=== PATIENT | female | born 1955 | race Caucasian/White ===

== ENCOUNTER 2017-01-29 06:48 | Day surgery (SDC) | payer OTHER ==
[~2017-01-29] VITALS: Ht 157.5 cm; Wt 100.7 kg
[~2017-01-29 06:48] MED LIST: ADULT LOW DOSE81 MG PO; CYCLOBENZAPRINE5 MG PO; DIOVAN40 MG PO; IBUPROFEN600 MG PO; OMEPRAZOLE20 M1 PO; OXYCODON-ACETA1 EAC2 PO; PROAIR HFA8.5 GM INH; PROZAC20 MG PO; TYLENOL325 MG PO; VALSARTAN-HCTZ1 EACH PO; VITAMIN D1000 UNI1 PO; VITAMIN E1000 UNI1 PO
--- NOTE | 2017-01-29 12:19 | NUR ---
01/29/17 Steffany9 Ann Mcmanus 1214 - PT ARRIVED TO PACU. OPA IN PLACE.
[2017-01-29] MEDS ORDERED: OXYCODON-ACETA1 EAC2 PO (12:33)
--- NOTE | 2017-01-29 15:21 | NUR ---
1500 AMB TO BR VOIDS 300MLS YELLOW URINE. DID WELL. WANTS TO GO HOME GETTING DRESSED. DENIES NEED FOR PAIN MEDICINE. 0/10 PAIN.
--- NOTE | 2017-02-03 13:10 | OR ---
[facility] [address], [place] [address] Signed DATE OF SERVICE: 01/29/2017 PREOPERATIVE DIAGNOSIS: Left stage III breast carcinoma with residual (positive margin) superior and superolateral aspect. POSTOPERATIVE DIAGNOSIS: Left stage III breast carcinoma with residual (positive margin) superior and superolateral aspect. PROCEDURE: Re-excision of left breast tissue for negative margin. ANESTHESIA: General LMA (Samina Chase CRNA) and local 10 cc of 0.25% Marcaine with epinephrine. INDICATION: This 61-year-old obese white woman is a patient of MATT Stoddard, and is from [place], [place]. She has undergone left partial mastectomy with sentinel lymph node identification and subsequent (concurrent) left axillary dissection on January 03, 2017. Eight of nine axillary lymph nodes were positive for metastatic disease. The primary tumor size is 3 cm, moderately differentiated. There was some evidence of carcinoma in situ as well. She continues to have output from her axillary drain of 30 cc a day. She does have a longstanding and persistent smoking history of 1 pack of cigarettes a day. Smoking cessation attempts have been made. Her final pathology did show a positive margin in the superior and superolateral aspect of the excision site and on that basis reexcision is recommended. The risks of bleeding, infection, cosmetic deformity, and so forth were reviewed with herin detail. She understands and wished to proceed. FINDINGS: The tissue was inflamed, as would be expected more than 2 weeks out from operation. Excision was undertaken in superior and superolateral aspect. Parenchymal reapproximation was undertaken. Good cosmesis was maintained. Specimen was oriented for pathologicevaluation with sutures. DESCRIPTION OF PROCEDURE: The patient was brought to the operating room, given a general LMA-type anesthetic. Preoperative antibiotic, Ancef, was given. Sequential compression device stockings used and heparin subcutaneously administered. The axillary drain was draining medium darkessentially clear fluid from the left axilla. The left breast was prepared with a chlorhexidine solution after removing the tape and adhesive residue. A transverse incision in the superolateral aspect of the left breast was used for incision sites. Incision was made through the previous incision. Dissection carried through the dermis. Inflammatory changes were noted asexpected. Electronically Signed By: SLIM GUTIERREZ MD 02/03/17 1310 PATIENT NAME: ANGY CATHERINE OPERATIVE REPORT DATE OF : 51 PHYSICIAN: SLIM GUTIERREZ MD REPORT #: [id number] REPORT IS CONFIDENTIAL AND NOT TO BE RELEASED WITHOUT AUTHORIZATION [facility] [address] [place] [id number] Signed Using electrocautery excision of the superior aspect of the biopsy cavity and lateral Aspect concordant with the pathology report and orientation of the original excised specimen was then undertaken. Photographs were taken as well. Once excised, the tissue was marked with a short stitch superior, long stitch laterally, and a double stitch in the deep margin. The parenchyma was reapproximated with interrupted 2-0 Vicryl. The skin was closed with interrupted 3-0 Vicrylin the deep dermal layer. Steri-Strips were applied, as was the Mepilex silver sponge dressing and an Opsite. An Opsite was additionally used to secure the axillary drain. It is anticipated that the drain will be removed soon when it is less than 30 cc a day. She tolerated the procedure well. BLOOD LOSS: Minimal. COMPLICATIONS: None. MD JUMA Ruggiero/Kathyl /[id number] cc: MD Beka Jaramillo MD [facility] MATT Stoddard, [place] Electronically Signed By: SLIM GUTIERREZ MD 02/03/17 1310 PATIENT NAME: AVESANDIPANGY SOFIA OPERATIVE REPORT DATE OF : 51 PHYSICIAN: SLIM GUTIERREZ MD REPORT #: [id number] REPORT IS CONFIDENTIAL AND NOT TO BE RELEASED WITHOUT AUTHORIZATION
== END 2017-01-29 15:10 | disposition home or self-care (01) ==
LOC: DS 06:48
PROVIDERS: Surgery
PROC: 0HBU0ZX Excision of Left Breast, Open Approach, Diagnostic (ICD-10-PCS; principal; 2017-01-29 10:00)
DX: C50.412 Malignant neoplasm of upper-outer quadrant of left female breast (principal); I10 Essential (primary) hypertension; G47.30 Sleep apnea, unspecified; K21.9 Gastro-esophageal reflux disease without esophagitis; F17.210 Nicotine dependence, cigarettes, uncomplicated; Z85.3 Personal history of malignant neoplasm of breast; Z98.41 Cataract extraction status, right eye; Z98.42 Cataract extraction status, left eye; Z90.710 Acquired absence of both cervix and uterus; Z90.12 Acquired absence of left breast and nipple; Z90.49 Acquired absence of other specified parts of digestive tract; Z98.890 Other specified postprocedural states
CPT/HCPCS: 00404; 80053; 85025; J0690; J1100; J1644; J2250; J2405; J3010; J7120

== ENCOUNTER 2017-02-07 08:43 | Day surgery (SDC) | payer OTHER ==
[~2017-02-07] VITALS: Ht 157.5 cm; Wt 100.7 kg
--- NOTE | 2017-02-07 13:07 | NUR ---
02/07/17 Jes Ohara REPORT FROM [employer]UCK [employer]IVER.
[2017-02-07] MEDS ORDERED: OXYCODONE HCL5 MG PO (13:36)
--- NOTE | 2017-02-07 14:12 | NUR ---
c/o 7/10 pain. states feels like someone on my chest , puts hand over r dressing and hand over l dressing. oxycodone given with jello.
--- NOTE | 2017-02-07 15:12 | NUR ---
HAS TAKEN CRACKERS/JELLO. RATES PAIN 5/10 STATES THIS ACCEPTABLE. WANTS TO GO HOME.EARLIER AMB TO BR, VOIDED 400MLS
--- NOTE | 2017-02-23 10:25 | OR ---
[facility] [address] [place], [place] [address] Signed DATE OF SERVICE: 02/07/2017 PREOPERATIVE DIAGNOSES: Left stage IIIA infiltrating ductal breast carcinoma. Positive margin and deep re-excision site, left upper outer quadrant. Smoking and obesity. POSTOPERATIVE DIAGNOSIS: Left stage IIIA infiltrating ductal breast carcinoma. Positive margin and deep re-excision site, left upper outer quadrant. Smoking and obesity. PROCEDURES: Placement of right subclavian Bard port catheter (prolonged complicated and difficult). Surgeon-directed fluoroscopy (prolonged). Re-excision of left upper outer quadrant breast excision site to attain negative margin. SURGEON: Slim Gutierrez M.D. ANESTHESIA: General LMA (Bran Klein CRNA) and local 10 mL of 1% lidocaine with epinephrine. INDICATION: This 61- year-old white woman is from [place], [place]. Patient of Taylor Rabago, nurse practitioner in [place], [place]. She was found to have infiltrating ductal breast carcinoma of the left upper outer quadrant upon image-guided biopsy by Dr. Adriana Jakcson and underwent lumpectomy and axillary dissection on January 03, 2017. She was found to have a primary tumor size of 3 cm considered moderately differentiated. ER/SD positive, and 8/9 axillary lymph nodes positive, and sentinel lymph node biopsies had been positive as well. She is known to have a positive margin on final pathologic assessment of the excision site in the superior and superolateral aspect. Reexcision was undertaken widely and residual carcinoma on that side was identified. Additionally, there was a positive margin deeply at the biopsy cavity site. Initial and re-excision had not extended to the pectoralis fascia. It is noted that she is quite obese and does smoke. She was anticipated to undergo Port-A-Cath placement today for chemotherapy, anticipated under the direction of Dr. Tracy in [facility], but with positive margin noted on re-excision at this time in the deep margin, consideration is made for additional re-excision to attain a deep pathologically negative margin. Electronically Signed By: SLIM GUTIERREZ MD 02/23/17 1025 PATIENT NAME: ANGY CATHERINE OPERATIVE REPORT DATE OF : 51 PHYSICIAN: SLIM GUTIERREZ MD REPORT #: [id number] REPORT IS CONFIDENTIAL AND NOT TO BE RELEASED WITHOUT AUTHORIZATION [facility] [address] [place], [place] [address] Signed We discussed the merits of re-excision versus possible total mastectomy. I favor re-excision and only of additional positive margin is noted would consideration be made for mastectomy. The risks of re-excision include, but are not limited to, bleeding, infection, cosmetic deformity, and placement of a Port-A-Cath include bleeding, infection, arterial injury, dysfunction of the catheter, embolization of the catheter infection in the catheter, and other unforeseen complications. She and her friends who accompanied her understanding and agreed to proceed. FINDINGS: A central venous catheter was placed first. Access through the right neck was anticipated initially that she is very plethoric and has a very short neck and access to the right carotid artery showing pulsatile bleeding was accomplished, but access to the internal jugular vein not forthcoming. On that basis, access was through the right subclavian vein. The wire that was passed had a propensity to pass across the right subclavian vein across the innominate to the left subclavian vein. Once considerable amount of effort and manipulation under fluoroscopic control, the wire was ultimately guided to the superior vena cava and ultimately the inferior vena cava confirming it to be in the venous channel. The catheter was placed with the tip in the superior vena cava and good function of catheter was noted. Contrast study showed the course of the catheter to be good without evidence of kinking or other problem and it functioned well. A post-anesthesia recovery room chest x-ray showed the tip of the catheter to be in the superior vena cava and optimally placed without sign of complication. As regard to re-excision of the breast, the biopsy cavity was gummy and inflamed as would be expected. Wide excision was undertaken deeply down to the pectoralis fascia and to a lesser extent, superiorly and inferiorly. The specimen was oriented appropriately and we are hopeful and optimistic for a negative margin to ultimately be determined. Reasonable cosmesis was maintained despite this being the second reexcision of the tumor site given her significant obesity. DESCRIPTION OF PROCEDURE: The patient was brought to the operating room, given a general anesthetic with an LMA device. The head was turned to the left in the upper torso including the left chest wall, right side neck and so forth, all prepared with chlorhexidine solution and draped sterilely. Preoperative antibiotics were given. Sequential compression device stockings used and heparin subcutaneously administered. She had an impressively short and plethoric neck. Using the Seldinger technique, the right neck was deemed appropriate for an internal jugular approach for her central catheter given her obesity and so forth. Electronically Signed By: SLIM GUTIERREZ MD 02/23/17 1025 PATIENT NAME: ANGY CATHERINE OPERATIVE REPORT DATE OF : 51 PHYSICIAN: SLIM GUTIERREZ MD REPORT #: [id number] REPORT IS CONFIDENTIAL AND NOT TO BE RELEASED WITHOUT AUTHORIZATION [facility] [address] [place], [place] [address] Signed Passage to t h e right carotid artery as evidenced by pulsatile bleeding was noted and the needle was withdrawn and pressure applied. Additional attempts at access to the vein were unsuccessful. Given the short neck and difficulty providing reliable right internal jugular venous access, the right subclavian vein was deemed reasonable. With similar technique beneath the right clavicle on the lateral middle third, the right subclavian vein was accessed showing dark nonpulsatile blood. A flexible J-wire was passed without resistance down the needle. The needle was removed. Surgeon-directed fluoroscopy was undertaken, which showed that the wire traversed the mediastinum to the left subclavian vein. Under fluoroscopic control, various manipulations were undertaken to adjust the wire to the superior vena cava and padded it downward to the inferior vena cava. Various position changes were required. Head position change and so forth, as the catheter had a very strong proclivity to passage across the mediastinum rather than down the superior vena cava. Ultimately, it was withdrawn enough and with fair amount of luck entered into the superior vena cava which traversed easily and down to the inferior vena cava, confirming its position in the venous system. 1% lidocaine was injected transversely over the right pectoralis area, mindful of the large breast which had been retracted inferiorly for the course of this procedure. Dissection was carried through the subcutaneous tissue with electrocautery. A pocket was developed inferiorly directly over the pectoralis fascia. The overlying breast parenchyma and fat was not too excessive to allow for placement of a port in this area. The puncture site with the wire emanating from it was incised with an 11 blade and a blue dilator and subseque ntly the dilator and peel-away sheath introducer passed over the wire. Previous retrograde dark nonpulsatile bleeding was noted from the peel-away sheath introducer. A previously inspected Bard port catheter (Groshong type tip) was passed down the peel-aw a y sheath introducer as far as possible and stabilized and the peel-away sheath introducer removed. Aspiration on the device showed withdrawal of blood, which was dark and nonpulsatile. She was placed in the neutral position, at this point, and fluoroscopy once again undertaken. A small amount of the intravenous contrast was used to visualize the catheter more fully. On direct fluoroscopy, the catheter tip was withdrawn ultimately to the superior vena cava, where it appeared well position. Using a tunneling device, the catheter was delivered to the pocket inferiorly. A port had been partially secured to the pectoralis fascia in the pocket previously created. The catheter was trimmed to appropriate length and secured to the port device within close collar d e vice per manufacture's instructions. The catheter appeared to have a reasonably good pathway and without kinking or distortion. The port was carefully secured to the pectoralis fascia with interrupted 2-0 Vicryl suture in multiple layers as to avoid inverting and other abnormalities not rare to the obese patient. Access to Electronically Signed By: SLIM GUTIERREZ MD 02/23/17 1025 PATIENT NAME: ANGY CATHERINE OPERATIVE REPORT DATE OF : 51 PHYSICIAN: SLIM GUTIERREZ MD REPORT #: [id number] REPORT IS CONFIDENTIAL AND NOT TO BE RELEASED WITHOUT AUTHORIZATION [facility] [address], [place] [address] Signed the port device with angled Artis needle, and heparinized saline showed good flow and easy withdrawal of blood. Contrast was used to do a final fluoroscopic view of the catheter assembly in it and the subcutaneous tissue to confirm no evidence of kinking or other distortion. Once this was affirmed, the pocket was closed with interrupted 2-0 Vicryl and running subcuticular 3-0 Vicryl for the skin. Steri-Strips were applied as well as a Me pilex silver sponge dressing after accessing the port percutaneously confirming its good function. Attention was turned to reexcision of the left breast site. The area had been prepared already with a chlorhexidine solution. Incision was made in the skin in the superior lateral aspect. Dissection carried through to break up the Vicryl that were closing the biopsy cavity. There was some amount of dark lymphatic fluid within it. Allis clamps used to grasp the breast parenchyma medially and laterally and using electrocautery, superior, inferior, and particularly deep re-excision of the biopsy cavity site was undertaken down to the pectoralis fascia. It was ultimately removed. The short stitch was used to bran the superior margin and a long stitch lateral and a double stitch in the deep (peripectoralis fascia) area. In addition, a plastic impliment implement was sewn to the central portion of the biopsy cavity for pathologic orientation. Irrigation was undertaken of the biopsy cavity with saline and ultimately sterile water. Good hemostasis was assured. The parenchyma was reapproximated with interrupted 2-0 Vicryl. Deep dermal similarly reapproximated and the skin closed with running subcuticular 3-0 Vicryl. Steri-Strips were applied. As the patient is rather obese and breast flat, reasonably forgiving to even large reexcision, cosmesis was considered acceptable. Mepilex silver sponge dressings were applied to each site as were op-site dressing. The patient was allowed to emerge from anesthesia, extubated, and transferred to recovery in good condition. Blood loss was 25 cc at most. MD JUMA Ruggiero/Adriana /[id number] Electronically Signed By: SLIM GUTIERREZ MD 02/23/17 1025 PATIENT NAME: FAUSTINA CATHERINEERICA BLACK OPERATIVE REPORT DATE OF : 51 PHYSICIAN: SLIM GUTIERREZ MD REPORT #: [id number] REPORT IS CONFIDENTIAL AND NOT TO BE RELEASED WITHOUT AUTHORIZATION [facility] [address] [place] [id number] Signed cc: Dr. Adriana Jackson [facility] Dr. Beka Tracy Radiation Oncologist [place], [place] Dr. Henley Electronically Signed By: SLIM GUTIERREZ MD 02/23/17 1025 PATIENT NAME: DORENEANGY OPERATIVE REPORT DATE OF : 51 PHYSICIAN: SLIM GUTIERREZ MD REPORT #: [id number] REPORT IS CONFIDENTIAL AND NOT TO BE RELEASED WITHOUT AUTHORIZATION
--- NOTE | 2017-03-03 11:31 | OR ---
[facility] [address] [place], [place] [address] Signed DATE OF PROCEDURE: 02/28/17 PREOPERATIVE DIAGNOSES Residual carcinoma left breast, status post lumpectomy, S[place] lymph node biopsy, completion axillary dissection, and re-excision for negative margins x2. Ongoing smoking. Obesity. POSTOPERATIVE DIAGNOSES Residual carcinoma left breast, status post lumpectomy, S[place] lymph node biopsy, completion axillary dissection, and re-excision for negative margins x2. Ongoing smoking. Obesity. PROCEDURE Left total mastectomy and T plasty of lateral skin for cosmetic benefit. SURGEON: Slim Gutierrez MD. ANESTHESIA: General endotracheal (Slim Lundberg CRNA). INDICATIONS This 61-year-old obese white woman who is a patient of MATT Stoddard and has undergone lumpectomy with sentinel lymph node biopsy and concurrent left axillary dissection for infiltrating ductal breast carcinoma in the upper outer aspect on the left side. Following excision, her pathologic margins were found to be positive, and on that basis, re-excision for negative margins was undertaken. In a different area, a positive margin was once again identified and additional re-excision was undertaken. There remained a positive margin, and on that basis, a total mastectomy was recommended to secure a negative margin. She was noted to have 8 of 9 axillary lymph nodes positive for metastatic disease. The primary tumor was 3 cm considered moderately differentiated. There was some evidence of carcinoma in situ as well. She has undergone additional consultation with Dr. Tracy in the [facility] as well as Dr. Henley in the [facility] and anticipating chemotherapy and adjuvant radiation therapy. She is admitted to undergo total mastectomy on the left side to provide for negative margin. Understand the risks of bleeding, infection, cosmetic deformity, wound healing problems, and so on. The patient does continue to smoke and in general has obesity and other medical problems She understands the risks of bleeding, infection, cosmetic deformity, failure to cure the problem despite efforts to do so, wound healing problems particularly given her smoking and so forth and wishes to proceed. FINDINGS Electronically Signed By: SLIM GUTIERREZ MD 03/03/17 1131 PATIENT NAME: ANGY CATHERINE OPERATIVE REPORT DATE OF : 51 PHYSICIAN: SLIM GUTIERREZ MD REPORT #: [id number] REPORT IS CONFIDENTIAL AND NOT TO BE RELEASED WITHOUT AUTHORIZATION [facility] [address] [place], [place] [address] Signed Incisions from prior surgery were well healed. She had no arm edema. There is minimal edema of the left breast but no sign of erythema. The previous incision was cephalad to the areolar margin. Total mastectomy was undertaken including the pectoralis fascia. The flaps were maintained with normal subcutaneous tissue with this. Good viability as well could be clinically with excision of breast tissue well differentiated from the underlying subcutaneous fat. A seroma cavity from prior excision and reexcision was encountered. There was no sign of axillary adenopathy or other abnormality though there was scar tissue related to prior axillary dissection. Two drains were placed. Flap viability appears quite good. PROCEDURE The patient was brought to the operating room, given a general endotracheal anesthetic. Preoperative antibiotics were given. Sequential compression device stockings used and heparin subcutaneously administered. The left chest and left upper arm were prepared with a chlorhexidine solution and draped sterilely. Careful manipulation of the breast defined what margins could be excised to incorporate the nipple-areolar complex and the initial excision site. An elliptical incision was made extending medially transversely to the axilla. Dissection was carried through the dermis with electrocautery. Using sharp dissection only with 20 blade, superior and inferior flaps were developed. With appropriate counter tension, the plane between the subcutaneous tissue and the parenchyma of the breast could be defined well. This allowed for a slightly thicker flap than sometimes is seen but this allowed for good viability of the overlying skin. When the flaps were developed, hemostasis was assured with hemostats and subsequently electrocautery in a localized manner. Sharp dissection was used to minimize the risk of lymphedema and flap necrosis. Breast was excised from the inferior to superior and medial to lateral direction excising with it the pectoralis fascia. The axilla was approached scarring from prior axillary dissection was noted. Complet eexcision of the breast including the axillary tail of Bowen was accomplished without problem. Irrigation was undertaken with sterile water for its tumoralitic affect. There was essentially no worrisome bleeding. Two separate stab incisions were made allowing for 7-mm flat Sanchez drains to be placed and secured to skin with nylon suture. The flaps were reapproximated with interrupted 2-0 Vicryl in deep dermal layer. A T-plasty of the lateral incision was used to improve cosmesis given her obesity and a predictable excess amount of posterior axillary subcutaneous tissue. This allowed for good cosmesis. The skin was closed with running subcuticular 3-0 Vicryl. Steri-Strips were applied as was a Mepilex silver sponge dressing and an OpSite. The drains were attached to bulb suction. She was ultimately extubated and transferred to recovery in good condition having suffered no complication. Sponge, needle, and counts reported as correct x3. Electronically Signed By: SLIM GUTIERREZ MD 03/03/17 1131 PATIENT NAME: ANGY CATHERINE SOFIA OPERATIVE REPORT DATE OF : 51 PHYSICIAN: SLIM GUTIERREZ MD REPORT #: [id number] REPORT IS CONFIDENTIAL AND NOT TO BE RELEASED WITHOUT AUTHORIZATION [place] [id number] [place], [place] [address] Signed BLOOD LOSS: Less than 50 mL. MD JUMA Ruggiero/Adriana /[id number] cc: MD Adriana Hammond MD Vicki Kent, ARNP Dr. Sue Mandell Electronically Signed By: SLIM GUTIERREZ MD 03/03/17 1131 PATIENT NAME: ANGY CATHERINE SOFIA OPERATIVE REPORT DATE OF : 51 PHYSICIAN: SLIM GUTIERREZ MD REPORT #: [id number] REPORT IS CONFIDENTIAL AND NOT TO BE RELEASED WITHOUT AUTHORIZATION
== END 2017-02-07 15:05 | disposition home or self-care (01) ==
LOC: DS 08:43 → OPS 08:43
PROVIDERS: Surgery
PROC: 0HBU0ZX Excision of Left Breast, Open Approach, Diagnostic (ICD-10-PCS; 2017-02-07)
PROC: 05H533Z Insertion of Infusion Device into Right Subclavian Vein, Percutaneous Approach (ICD-10-PCS; principal; 2017-02-07 10:15)
PROC: B516YZA Fluoroscopy of Right Subclavian Vein using Other Contrast, Guidance (ICD-10-PCS; 2017-02-07 10:15)
DX: C50.412 Malignant neoplasm of upper-outer quadrant of left female breast (principal); K21.9 Gastro-esophageal reflux disease without esophagitis; G47.30 Sleep apnea, unspecified; E66.9 Obesity, unspecified; F17.210 Nicotine dependence, cigarettes, uncomplicated; Z98.41 Cataract extraction status, right eye; Z98.42 Cataract extraction status, left eye; Z90.710 Acquired absence of both cervix and uterus; Z90.12 Acquired absence of left breast and nipple; Z90.49 Acquired absence of other specified parts of digestive tract; Z85.3 Personal history of malignant neoplasm of breast; Z68.41 Body mass index [BMI] 40.0-44.9, adult; Z79.899 Other long term (current) drug therapy
CPT/HCPCS: 00404; 71010; 77001; C1788; J0690; J1644; J2405; J2704; J2765; J3010; J7120

== ENCOUNTER 2017-02-28 07:02 | Observation (INO) | payer OTHER ==
[~2017-02-28] VITALS: Ht 157.5 cm; Wt 99.8 kg
[~2017-02-28 07:02] MED LIST changes: +OXYCODONE HCL5 MG PO
--- NOTE | 2017-02-28 10:54 | NUR ---
02/28/17 1054 Ronna Membreno 1047-PATIENT ARRIVED TO PACU ON 10L MASK O2 SAT 98% ORAL AIRWAY IN PLACE. NONAROUSABLE PATIENT DOES HAVE EXPIRATORY WHEEZES. NEW ORDER RECEIVED FOR RACEMIC EPINEPHRINE NEBULIZER. DRESSING TO LEFT BREAST CDI 2 ANA DRAINS. 1054-NEBULIZER TREATMENT GOING, O2 SAT 98% WHEEZES DIMINISHING.
--- NOTE | 2017-02-28 12:40 | NUR ---
REPORT RECEIVED FROM BUSINESS MACHINES TEACHER, PATIENT ABLE TO MOVE HERSELF FROM THE STRETCHER TO THE BED WITHOUT ANY HELP. PATIENT IS ALERT AND ORIENTED AND RESPONSIVE TO HER NAME BUT STILL DROWSY FROM MEDICATION. SHE COMES TO THE FLOOR ON 2L OF OXYGEN AND PULSE OX IS ON. VITALS AND ASSESSMENT COMPLETED AND PATIENT REFUSED NICOTINE PATCH AT THIS TIME. SCD'S PLACED AND DRESSING TO THE LEFT CHEST IS CDI WITH MEPILEX AND OPSITE. ANA X2 INTACT AND MINIMAL DRAINAGE NOTED. FAMILY IN THE ROOM FOR REMPORT AND NO QUESTIONS OR CONCERNS ASKED AT THIS TIME.
--- NOTE | 2017-02-28 13:13 | NUR ---
PATIENT REMAINS ON OXYGEN WITH SATURATIONS AT 94% WHILE ASLEEP. PATIENT HAS A NEW BAG OF LR HUNG AND RUNNING AT THIS TIME.
--- NOTE | 2017-02-28 13:17 | NUR ---
IV ABX HUNG AND INFUSING INTO THE IV MACHINE.
--- NOTE | 2017-02-28 13:54 | NUR ---
REPORT RECEIVED FROM ERIC. ASSUMING PATIENT CARE AT THIS TIME. VS WNL. ASSESSMEMT COMPLETE. DRESSING ON THE LEFT CHEST D/C/I. T ANA DRAINS ON THE LEFT UPPER QUADRANT, DRAINING MINIMAL AMOUNT OF BLOODY FLUID. PATIENT DROWZY, RESPOND TO COMMEND. PATIENT ON 2L OF O2 VIA NC AND SAT @ 95%. PATIENT FALL BACK TO SLEEP DURING ASSESSMENT. FAMILY AT BEDSIDE. WILL CONTINUE TO MONITOR.
--- NOTE | 2017-02-28 13:57 | NUR ---
PT IN BED, ALERT AND ORIENTED. SUPORTED BY SEVERAL FRIENDS. PT SEEMED TENSE, EXTENDED BLESSING, SHE THANKED ME. WILL CONTINUE TO FOLLOW
[2017-02-28] MEDS ORDERED: LIDOCAINE-PRILO30 GM TOP (13:58)
[2017-02-28] MEDS ORDERED: SILVER SULFADI400 GM TOP (13:59)
[2017-02-28] MEDS ORDERED: PROCHLORPERAZIN10 MG PO (14:00)
[2017-02-28] MEDS ORDERED: ONDANSETRON HCL8 MG PO (14:01)
--- NOTE | 2017-02-28 14:07 | NUR ---
PT IS RESTING WITH EYES CLOSED, RESPERATIONS EVEN. PT WOKE UP FOR VITALS THEN FELL BACK ASLEEP. PT DID NOT NEED ANYTHING AT THE MOMENT
--- NOTE | 2017-02-28 15:31 | NUR ---
PATIENT RESTING IN BED AWAKE, A&O. DENIES NAUSEA, REPORTS 1/10 PAIN AT THE LEFT CHEST. DRESSING ON LEFT CHEST WNL AND DRAINS WNL WITH SCANT DRAINAGE. PATIENT TOLERATES FLUID WELL. WILL CONTINUE TO MONITOR.
--- NOTE | 2017-02-28 16:20 | NUR ---
PT APPEARS TO BE SLEEPING, VISIBLY BREATHING. PT FRIEND AT BEDSIDE.
--- NOTE | 2017-02-28 17:00 | NUR ---
PATIENT REQUESTS PAIN MED FOR 7/10 PAIN ON THE LEFT CHEST. SITTING IN BED EATING DINNER. NO APPARENT DISTRESS.
--- NOTE | 2017-02-28 17:28 | NUR ---
PT IS SITTING UP IN BED DOES NOT NEED ANYTHING ELSE
--- NOTE | 2017-02-28 17:39 | NUR ---
PATIENT HAD DONE WELL FOR THE SHIFT. TOLERATED FOOD WELL. NO NAUSEA. PAIN CONTROL WITH OXY AND PRN MORPHINE. DRESSING ON LEFT CHEST D/C/I. ANA DRAINS WNL WITH SCAN AMOUNT OF SANGUINOUS DRAINAGE. IV SITE PATENT. PATIENT ON 2L OF O2 VIA NC. HAS BEEN UP TO BATHROOM AND VOID. MAY DC TOMORROW.
[2017-02-28] MEDS ORDERED: CYCLOBENZAPRINE10 MG PO (18:00)
[2017-02-28] MEDS ORDERED: RABEPRAZOLE SOD20 MG PO (18:04)
[2017-02-28] MEDS ORDERED: IBUPROFEN200 MG PO (18:05)
[2017-02-28] MEDS ORDERED: VISTARIL25 MG PO (18:05)
--- NOTE | 2017-02-28 18:23 | NUR ---
Medications reconciled by pharmacist using Patient's pharmacy prescription records with patient interview.
--- NOTE | 2017-02-28 20:00 | NUR ---
RECEIVED REPORT AT 1900. FOUND PT IN BED SLEEPING. PT STATED PAIN LEVEL AT 2 AT THIS TIME.
--- NOTE | 2017-02-28 22:15 | NUR ---
DRESSING ON LEFT CHEST IS C/D/I. ANA DRAIN OUTPUT IS MINIMAL, V/S ARE WNL AND DID SO FAR NOT WARANT ANY HYDRALAZINE FOR HTN. PT STATED PAIN A 3-4. OXY 5MG PO WAS GIVEN. AT AROUND 2224 OR SO PT PROJECTILE VOMITED IN HER ROOM. OTHER RN CLEANED EVERYTHING UP AND PT RECEIVED A BED BATH AND 4MG OF IV ZOFRAN.
--- NOTE | 2017-02-28 22:50 | NUR ---
PT AT THIS TIME DENIES N/V.
--- NOTE | 2017-03-01 01:01 | NUR ---
PT IS SLEEPING AT THIS TIME.
--- NOTE | 2017-03-01 04:00 | NUR ---
PT IS SLEEPING AT THIS TIME.
--- NOTE | 2017-03-01 04:43 | NUR ---
PT AT THE START OF SHIFT HAD EMESIS X1, ZOFRAN 4MG IV WAS GIVEN AND PT HAD NO PROBLEM SINCE THEN. PAIN IS WELL CONTROLLED WITH PRN PAIN MEDS. DRESSING ON LEFT CHEST IS C/D/I. V/S SO FAR WERE WNL. PT REPORTS NO INCREASE IN NUMBNESS IN HER LEFT ARM AND HANDS.
--- NOTE | 2017-03-01 04:53 | NUR ---
SBP WAS 181. HYDRALAZINE PRN IV 10MG WILL BE GIVEN AND BP RECHECKED IN 30MIN.
--- NOTE | 2017-03-01 07:48 | NUR ---
BEDSIDE REPORT RECEIVED FROM PING. ASSUMING PATIENT CARE. PATIENT RESTING IN BED DENIES PAIN AND NAUSEA. NO APPARENT DISTRESS NOTED.
--- NOTE | 2017-03-01 08:22 | NUR ---
CALLED AND DISCUSSED ORDER FOR CONSULT FROM KISHORE KAY OF BREAST TEAM PER ORDER. KISHORE WILL COME BY AND SEE PT THIS AM.
--- NOTE | 2017-03-01 09:25 | NUR ---
BREAST TEAM SUPERINTENDENT SERVICE IN ROOM TO SEE PATIENT. PHYSICAL ASSESSMENT DONE. PATIENT'S MORNING MEDS ADMINISTERED. PATIENT DENIES PAIN AND NAUSEA. DRESSING ON THE LEFT CHEST D/C/I. ANA DRAINS IN PLACE WNL WITH SANGUINOUS FLUID. IV SITE PATENT. TRACE EDEMA NOTED IN THE UPPER AND LOWER EXTREMITIES. NO APPARENT DISTRESS. WILL CONTINUE TO MONITOR.
[2017-03-01] MEDS ORDERED: NICOTINE PATCH1 EAC1 TD (11:48)
[2017-03-01] MEDS ORDERED: OXYCODONE HCL5 MG PO (11:50)
--- NOTE | 2017-03-28 17:56 | OR ---
[facility] [address] [place], [place] [address] Signed DATE OF PROCEDURE: 02/28/17: PREOPERATIVE DIAGNOSES: Residual carcinoma left breast, status post lumpectomy, Bishop lymph node biopsy, completion axillary dissection, and re-excision for negative margins x2. Ongoing smoking. Obesity. POSTOPERATIVE DIAGNOSES: Residual carcinoma left breast, status post lumpectomy, Bishop lymph node biopsy, completion axillary dissection, and re-excision for negative margins x2. Ongoing smoking. Obesity. PROCEDURE: Left total mastectomy and T plasty of lateral skin for cosmetic benefit. SURGEON: Slim Gutierrez MD. ANESTHESIA: General endotracheal (Slim Lundberg CRNA). INDICATIONS: This 61-year-old obese white woman who is a patient of MATT Stoddard and has undergone lumpectomy with sentinel lymph node biopsy and concurrent left axillary dissection for infiltrating ductal breast carcinoma in the upper outer aspect on the left side. Following excision, her pathologic margins were found to be positive, and on that basis, re-excision for negative margins was undertaken. In a different area, a positive margin was once again identified and additional re-excision was undertaken. There remained a positive margin, and on that basis, a total mastectomy was recommended to secure a negative margin. She was noted to have 8 of 9 axillary lymph nodes positive for metastatic disease. The primary tumor was 3 cm considered moderately differentiated. There was some evidence of carcinoma in situ as well. She has undergone additional consultation with Dr. Tracy in the [facility] as well as Dr. Henley in the [facility] and anticipating chemotherapy and adjuvant radiation therapy. She is admitted to undergo total mastectomy on the left side to provide for negative margin. Understand the risks of bleeding, infection, cosmetic deformity, wound healing problems, and so on. The patient does continue to smoke and in general has obesity and other medical problems. She understands the risks of bleeding, infection, cosmetic deformity, failure to cure the problem despite efforts to do so , wound healing problems particularly given her smoking and so forth and wishes to proceed. FINDINGS: Incisions from prior surgery were well healed. She had no arm edema. There is minimal edema of the left breast but no sign of erythema. The previous incision was cephalad to the areolar margin. Total mastectomy was undertaken including the pectoralis Electronically Signed By: SLMI GUTIERREZ MD 03/28/17 1756 PATIENT NAME: ANGY CATHERINE OPERATIVE REPORT DATE OF : 51 PHYSICIAN: SLIM GUTIERREZ MD REPORT #: [id number] REPORT IS CONFIDENTIAL AND NOT TO BE RELEASED WITHOUT AUTHORIZATION [facility] [address] [place], [place] [address] Signed fascia. The flaps were maintained with normal subcutaneous tissue with this. Good viability as well could be clinically with excision of breast tissue well differentiated from the underlying subcutaneous fat. A seroma cavity from prior excision and reexcision was encountered. There was no sign of axillary adenopathy or other abnormality though there was scar tissue related to prior axillary dissection. Two drains were placed. Flap viability appears quite good. PROCEDURE: The patient was brought to the operating room, given a general endotracheal anesthetic. Preoperative antibiotics were given. Sequential compression device stockings used and heparin subcutaneously administered. The left chest and left upper arm were prepared with a chlorhexidine solution and draped sterilely. Careful manipulation of the breast defined what margins could be excised to incorporate the nipple-areolar complex and the initial excision site. An elliptical incision was made extending medially transversely to the axilla. Dissection was carried through the dermis with electrocautery. Using sharp dissection only with 20 blade, superior and inferior flaps were developed. With appropriate counter tension, the plane between the subcutaneous tissue and the parenchyma of the breast could be defined well. This allowed for a slightly thicker flap than sometimes is seen but this allowed for good viability of the overlying skin. When the flaps were developed, hemostasis was assured with hemostats and subsequently electrocautery in a localized manner. Sharp dissection was used to minimize the risk of lymphedema and flap necrosis. Breast was excised from the inferior to superior and medial to lateral direction excising with it the pectoralis fascia. The axilla was approached scarring from prior axillary dissection was noted. Complete excision of the breast including the axillary tail of Bowen was accomplished without problem. Irrigation was undertaken with sterile water for its tumoralitic affect. There was essentially no worrisome bleeding. Two separate stab incisions were made allowing for 7-mm flat Sanchez drains to be placed and secured to skin with nylon suture. The flaps were reapproximated with interrupted 2-0 Vicryl in deep dermal layer. A T-plasty of the lateral incision was used to improve cosmesis given her obesity and a predictable excess amount of posterior axillary subcutaneous tissue. This allowed for good cosmesis. The skin was closed with running subcuticular 3 -0 Vicryl. Steri-Strips were applied as was a Mepilex silver sponge dressing and an OpSite. The drains were attached to bulb suction. She was ultimately extubated and transferred to recovery in good condition having suffered no complication. Sponge, needle, and counts reported as correct x3. BLOOD LOSS: Less than 50 mL. Electronically Signed By: SLIM GUTIERREZ MD 03/28/17 1756 PATIENT NAME: ANGY CATHERINE SOFIA OPERATIVE REPORT DATE OF : 51 PHYSICIAN: SLIM GUTIERREZ MD REPORT #: [id number] REPORT IS CONFIDENTIAL AND NOT TO BE RELEASED WITHOUT AUTHORIZATION [address] [place], [place] [address] Signed MD JUMA Ruggiero/Adriana /[id number] Electronically Signed By: SLIM GUTIERREZ MD 03/28/17 1756 PATIENT NAME: ANGY CATHERINE OPERATIVE REPORT DATE OF : 51 PHYSICIAN: SLIM GUTIERREZ MD REPORT #: [id number] REPORT IS CONFIDENTIAL AND NOT TO BE RELEASED WITHOUT AUTHORIZATION
== END 2017-03-01 12:20 | disposition home or self-care (01) ==
LOC: DS 07:02 → MS 12:50
PROVIDERS: ADMIT Surgery
PROC: 0HTU0ZZ Resection of Left Breast, Open Approach (ICD-10-PCS; principal; 2017-02-28 08:30)
DX: C50.412 Malignant neoplasm of upper-outer quadrant of left female breast (principal); E66.01 Morbid (severe) obesity due to excess calories; K21.9 Gastro-esophageal reflux disease without esophagitis; I10 Essential (primary) hypertension; G47.33 Obstructive sleep apnea (adult) (pediatric); J45.909 Unspecified asthma, uncomplicated; C77.3 Secondary and unspecified malignant neoplasm of axilla and upper limb lymph nodes; F17.210 Nicotine dependence, cigarettes, uncomplicated; M54.9 Dorsalgia, unspecified; G89.29 Other chronic pain; Z79.82 Long term (current) use of aspirin; Z17.0 Estrogen receptor positive status [ER+]; Z79.1 Long term (current) use of non-steroidal anti-inflammatories (NSAID); Z79.891 Long term (current) use of opiate analgesic; Z68.41 Body mass index [BMI] 40.0-44.9, adult; Z88.8 Allergy status to other drugs, medicaments and biological substances; Z88.6 Allergy status to analgesic agent; Z91.040 Latex allergy status; Z79.899 Other long term (current) drug therapy
CPT/HCPCS: 00404; 36415; 85025; 94644; 94762; 96361; 96372; 96374; 96375; 96376; 99406; G0378; J0360; J0690; J1100; J1644; J1885; J2250; J2270; J2405; J2704; J2765; J3010; J7120

== ENCOUNTER 2017-04-26 05:36 | Day surgery (SDC) | payer OTHER ==
[~2017-04-26] VITALS: Ht 157.5 cm; Wt 99.8 kg
[~2017-04-26 05:36] MED LIST changes: +CYCLOBENZAPRINE10 MG PO; +IBUPROFEN200 MG PO; +LIDOCAINE-PRILO30 GM TOP; +NICOTINE PATCH1 EAC1 TD; +ONDANSETRON HCL8 MG PO; +PROCHLORPERAZIN10 MG PO; +RABEPRAZOLE SOD20 MG PO; +SILVER SULFADI400 GM TOP; +VISTARIL25 MG PO
[2017-04-26] MEDS ORDERED: HYDROMORPHONE HC4 MG PO (08:50)
--- NOTE | 2017-04-27 13:40 | OR ---
[facility] [address] [place], [place] [address] Signed DATE OF PROCEDURE: 04/26/17 PREOPERATIVE DIAGNOSES Dysfunctional right subclavian Port-A-Cath, said to be "flipped." Stage III left breast carcinoma, undergoing chemotherapy. PROCEDURE PERFORMED Exploration of wound with Port-A-Cath revision. Port-A-Cath angiogram with surgeon directed fluoroscopy. SURGEON: Slim Gutierrez MD. ANESTHESIA General LMA (Slim Lundberg CRNA) and local 10 mL of 1% Lidocaine. INDICATION This 61-year-old morbidly obese white woman has undergone breast cancer treatment with ri including lumpectomy, sentinel lymph node identification, ultimately axillary dissection, and total mastectomy to allow for negative margin. A Port-A-Cath was placed in the right subclavian area in January. She has undergone some chemotherapy, indeed has hair loss and so forth. Yesterday in the chemotherapy clinic in the [facility] under the direction of Dr. Beka Tracy, Medical Oncologist, access to the port was not forthcoming. It was thought that clinically the port had "flipped." She is seen today for revision of Port-A-Cath to ascertain the source of his dysfunction. Oncology nurses had asked that a vial of blood be obtained to verify function of the catheter. It was also asked that if there remained access to allow for chemotherapy today. I have discussed all this with the patient. The risks of bleeding, infection, need for new port altogether and other unforeseen complications related to possible revision of the Port-A-Cath were reviewed with her, she understands. FINDINGS At the time of exploration, the port itself was not "flipped," but the fibrous capsule floor was impressively capacious. This may represent the fact that she has had weight loss since chemotherapy and the fibrous capsule did not shrink with her weight loss. It could easily be seen how the port could flip within the capsule. Remedy of the problem was to secure the port more fully to the capsule with longer lasting sutures (PDS sutures). Additionally, the capsule was closed snugly against the port. Access to the catheter showed it to easily withdraw blood and infuse Heparinized Saline. Photographs were taken to document this for the satisfaction of the oncology nurse. The port was left accessed and is fully functional at time of placement. Electronically Signed By: SLIM GUTIERREZ MD 04/27/17 1340 PATIENT NAME: ANGY CATHERINE OPERATIVE REPORT DATE OF : 51 PHYSICIAN: SLIM GUTIERREZ MD REPORT #: [id number] REPORT IS CONFIDENTIAL AND NOT TO BE RELEASED WITHOUT AUTHORIZATION [facility] [address] [place], [place] [address] Signed Fluoroscopy showed no damage to the catheter in any way and good function and good position of the catheter. DESCRIPTION OF PROCEDURE The patient was brought to the operating room and given general anesthetic with an LMA device. Preoperative antibiotic Ancef was given. Sequential compression device stockings were used. The upper torso was completely prepared with Chlorhexidine solution so as to have asked us to replace the port if necessary; 1% Lidocaine was injected in the right infraclavicular incision site. Manipulation of the soft tissue over t h e port did not make me highly suspicious of a flipped port at that point. A transverse incision was made in the previous incision. Dissection was carried through the subcutaneous tissue with electrocautery. It is notable that she was significantly obese. Ultimately, the capsule of the port was carefully incised and upon entry to the capsule, it was surprisingly capacious. The port itself was oriented reasonably well, but one could see given the capacious capsule that easily could flip. It is noted that it could easily be flipped back into position if necessary, however. There appeared to be no damage to the catheter itself or the port or anything of that sort. Photographs were taken. Using a Atris needle, the port was accessed showing good function, easily aspirating blood and flushing heparinized saline. The port was then secured with interrupted 2-0 PDS to the posterior capsule itself making it quite unlikely to disorient in anyway. The capsule was then secured snugly over the port device. An angiogram was performed and photographs saved to affirm that there was no displacement of the catheter nor leakage from it and it appeared optimal. Subcutaneous tissue was more fully reapproximated with interrupted 2-0 Vicryl and a running subcuticular 3-0 Vicryl was used for the skin. Steri-Strips were applied with percutaneous Artis needle having accessed the port and showing good function. Photographs were taken of this as well. A tube of blood was not going to be sent with the patient home to affirm its position. I hope that the photographs will be proof enough. Mepilex silver sponge dressing was applied to the site as was an OpSite. The patient was taken to recovery room in good condition having after extubation having no problems. BLOOD LOSS: Minimal. Slim Gutierrez MD Electronically Signed By: SLIM GUTIERREZ MD 04/27/17 1130 PATIENT NAME: ANGY CATHERINE SOFIA OPERATIVE REPORT DATE OF : 51 PHYSICIAN: SLIM GUTIERREZ MD REPORT #: [id number] REPORT IS CONFIDENTIAL AND NOT TO BE RELEASED WITHOUT AUTHORIZATION [facility] [address] [place] [address] Signed JUMA/Adriana /[id number] cc: MD Taylor Hammond ARNP Electronically Signed By: SLIM GUTIERREZ MD 04/27/17 1340 PATIENT NAME: AVEGTANGY CHAMORRO OPERATIVE REPORT DATE OF : 51 PHYSICIAN: SLIM GUTIERREZ MD REPORT #: [id number] REPORT IS CONFIDENTIAL AND NOT TO BE RELEASED WITHOUT AUTHORIZATION
== END 2017-04-26 10:50 | disposition home or self-care (01) ==
LOC: DS 05:36 → OPS 05:36 → DS 06:45 → OPS 06:45
PROVIDERS: Surgery
PROC: 0JWT3WZ Revision of Totally Implantable Vascular Access Device in Trunk Subcutaneous Tissue and Fascia, Percutaneous Approach (ICD-10-PCS; principal; 2017-04-26 06:45)
DX: T82.594A Other mechanical complication of infusion catheter, initial encounter (principal); E66.01 Morbid (severe) obesity due to excess calories; F17.210 Nicotine dependence, cigarettes, uncomplicated; K21.9 Gastro-esophageal reflux disease without esophagitis; I10 Essential (primary) hypertension; G47.30 Sleep apnea, unspecified; Z85.3 Personal history of malignant neoplasm of breast; Z98.41 Cataract extraction status, right eye; Z98.42 Cataract extraction status, left eye; Z90.710 Acquired absence of both cervix and uterus; Z90.12 Acquired absence of left breast and nipple; Z90.49 Acquired absence of other specified parts of digestive tract; Z98.890 Other specified postprocedural states; Z68.41 Body mass index [BMI] 40.0-44.9, adult
CPT/HCPCS: 00532; 77001; J0690; J1100; J1644; J2250; J2405; J2704; J2765; J3010; J7120